=== PATIENT | female | born 1955 | race African-American/Black ===

== ENCOUNTER 2016-12-12 22:13 | Inpatient (IN) | payer MEDICAID, OTHER ==
[~2016-12-12] VITALS: Ht 165.1 cm; Wt 107.5 kg
[2016-12-12] MEDS ORDERED: MAGNESIUM/ALUMINUM HYDROXIDE/SIMETHICONE 30ML UDC PO STA (22:35)
[2016-12-12] MEDS ORDERED: SODIUM CHLORIDE 0.9% 1,000 ML IV ONE (22:35)
[2016-12-12] MEDS ORDERED: ONDANSETRON HCL 4MG/2ML VIAL IV STA (22:35)
[2016-12-12 23:00] LABS: CLARITY URINE TURBID (CLEAR); COLOR URINE DARK YELLOW (YELLOW); GLUCOSE URINE NEGATIVE (NEGATIVE); KETONES URINE 2+ (NEGATIVE); LEUKOCYTE ESTERASE URINE TRACE (NEGATIVE); NITRITE URINE POSITIVE (NEGATIVE); OCCULT BLOOD URINE NEGATIVE (NEGATIVE); PH URINE 7.5 (4.5-8.0); PROTEIN URINE 1+ (NEGATIVE); SPECIFIC GRAVITY URINE 1.028 (1.005-1.030)
[2016-12-12] MEDS ORDERED: KETOROLAC 30MG/ML VIAL IV ONE (23:30)
[2016-12-12 23:47] LABS: CHLORIDE 107 mEq/L (98-107)
[2016-12-12 23:48] LABS: BASOPHILS % 0.5 % (0.0-2.0); EOSINOPHILS % 0.1 % (0.0-5.0); HEMATOCRIT. 41.4 % (36.0-48.0); HEMOGLOBIN. 14.2 g/dL (12.0-16.0); INR 1.1; LYMPHOCYTES % 14.3 % (20.0-50.0); MEAN CORPUSCULAR HEMOGLOBIN 31.4 pg (28.0-32.0); MEAN CORPUSCULAR VOLUME 91.7 fL (81.0-99.0); MEAN PLATELET VOLUME 8.4 fl (7.4-10.4); NEUTROPHILS % 80.1 % (40.0-76.0); PLATELET 274 x1000/uL (130-400); RED BLOOD CELL COUNT 4.52 mill/uL (4.2-5.4); RED CELL DISTRIBUTION WIDTH 13.1 % (11.6-14.6)
[2016-12-12 23:57] LABS: CARBON DIOXIDE 22 mEq/L (21-32)
[2016-12-13] MEDS ORDERED: CEFTRIAXONE 1 G PREMIX 50 ML IV ONE (00:45)
[2016-12-13] MEDS ORDERED: MORPHINE SULFATE 4 MG/ML CPJ (NOT FOR IM USE) IV ONE (02:15)
[2016-12-13] MEDS ORDERED: ACETAMINOPHEN 325MG TABLET PO PRN ×2 (03:00→09:00)
[2016-12-13] MEDS ORDERED: IBUPROFEN 600MG TABLET PO PRN (03:00)
[2016-12-13] MEDS ORDERED: SODIUM CHLORIDE 0.9% 1,000 ML IV SCH (03:00)
[2016-12-13 08:40] VITALS: BP 122/66
[2016-12-13 08:58] VITALS: BP 122/66
[2016-12-13] MEDS ORDERED: CLONIDINE 0.1MG TABLET PO PRN (09:00)
[2016-12-13] MEDS ORDERED: IPRATROPIUM/ALBUTEROL 0.5-3(2.5)MG/3ML NEB INH PRN (09:00)
[2016-12-13] MEDS ORDERED: HYDROCODONE/ACETAMINOPHEN 5/325MG TABLET PO PRN (09:00)
[2016-12-13] MEDS ORDERED: DIPHENHYDRAMINE 50MG/ML VIAL IV PRN (09:00)
[2016-12-13] MEDS ORDERED: MAGNESIUM/ALUMINUM HYDROXIDE/SIMETHICONE 30ML UDC PO PRN (09:00)
[2016-12-13] MEDS ORDERED: ONDANSETRON HCL 4MG/2ML VIAL IV PRN (09:00)
[2016-12-13] MEDS ORDERED: NAPR500T PO (09:15)
[2016-12-13] MEDS: ENOXAPARIN 30MG/0.3ML SYR SUBCUT SCH ×2 (09:15→21:51)
[2016-12-13] MEDS: MORPHINE SULFATE 4 MG/ML CPJ (NOT FOR IM USE) IV PRN ×2 (09:45→21:44)
[2016-12-13 12:00] VITALS: BP 103/54
[2016-12-13] MEDS: SODIUM CHLORIDE 0.9% 1,000 ML IV SCH ×2 (12:21→21:52)
[2016-12-13] MEDS ORDERED: POTASSIUM CHLORIDE 20MEQ TABLET SR PO NR (14:00)
[2016-12-13 16:00] VITALS: BP 97/54
[2016-12-13 17:40] LABS: CREATINE KINASE 71 IU/L (26-192); TROPONIN I < 0.02 ng/mL (0.00-0.04)
[2016-12-13 17:42] LABS: CREATINE KINASE MB FRACTION 0.6 ng/mL (0.5-3.6)
[2016-12-14 00:36] LABS: CREATINE KINASE 81 IU/L (26-192); CREATINE KINASE MB FRACTION 0.6 ng/mL (0.5-3.6); TROPONIN I < 0.02 ng/mL (0.00-0.04)
[2016-12-14 06:52] LABS: BASOPHILS % 0.3 % (0.0-2.0); EOSINOPHILS % 0.8 % (0.0-5.0); HEMATOCRIT. 40.5 % (36.0-48.0); HEMOGLOBIN. 13.4 g/dL (12.0-16.0); LYMPHOCYTES % 30.1 % (20.0-50.0); MEAN CORPUSCULAR HEMOGLOBIN 31.8 pg (28.0-32.0); MEAN CORPUSCULAR VOLUME 96.5 fL (81.0-99.0); MEAN PLATELET VOLUME 8.8 fl (7.4-10.4); MONOCYTES % 5.8 % (2.0-8.0); PLATELET 173 x1000/uL (130-400); RED CELL DISTRIBUTION WIDTH 13.5 % (11.6-14.6)
[2016-12-14 08:00] VITALS: BP 125/71
[2016-12-14 08:09] LABS: CARBON DIOXIDE 27 mEq/L (21-32); CHLORIDE 109 mEq/L (98-107); T4 FREE 1.27 ng/dL (0.76-1.46)
[2016-12-14] MEDS: ENOXAPARIN 30MG/0.3ML SYR SUBCUT SCH ×2 (09:51→20:26)
[2016-12-14 12:00] VITALS: BP 125/73
[2016-12-14] MEDS: MORPHINE SULFATE 4 MG/ML CPJ (NOT FOR IM USE) IV PRN ×2 (13:46→20:26)
[2016-12-14 15:04] LABS: HEPATITIS B SURFACE ANTIGEN NEGATIVE
[2016-12-14 15:32] LABS: HEPATITIS B CORE AB IGM NEGATIVE
[2016-12-14 16:00] VITALS: BP 120/74
[2016-12-14 20:00] VITALS: BP 122/79
[2016-12-14] MEDS ORDERED: LEVOFLOXACIN 750MG PREMIX 150 ML IV SCH (20:00)
[2016-12-14] MEDS: METRONIDAZOLE 500 MG PREMIX 100 ML IV SCH (20:25)
[2016-12-14] MEDS: LEVOFLOXACIN 500MG PREMIX 100 ML IV SCH (22:09)
[2016-12-14] MEDS: DEXT 5%/0.45% NACL KCL 20MEQ/L 1,000 ML IV SCH (23:56)
[2016-12-15] VITALS: BP 127/76
[2016-12-15 04:00] VITALS: BP 115/68
[2016-12-15] MEDS: METRONIDAZOLE 500 MG PREMIX 100 ML IV SCH ×3 (04:07→22:30)
[2016-12-15] MEDS: MORPHINE SULFATE 4 MG/ML CPJ (NOT FOR IM USE) IV PRN (04:09)
[2016-12-15 11:31] LABS: BASOPHILS % 0.5 % (0.0-2.0); EOSINOPHILS % 0.8 % (0.0-5.0); HEMATOCRIT. 38.2 % (36.0-48.0); HEMOGLOBIN. 12.9 g/dL (12.0-16.0); LYMPHOCYTES % 34.8 % (20.0-50.0); MEAN CORPUSCULAR HEMOGLOBIN 31.5 pg (28.0-32.0); MEAN CORPUSCULAR VOLUME 92.9 fL (81.0-99.0); MONOCYTES % 7.4 % (2.0-8.0); NEUTROPHILS % 56.5 % (40.0-76.0); PLATELET 212 x1000/uL (130-400); RED BLOOD CELL COUNT 4.11 mill/uL (4.2-5.4); RED CELL DISTRIBUTION WIDTH 12.9 % (11.6-14.6)
[2016-12-15 11:52] LABS: CHLORIDE 109 mEq/L (98-107)
[2016-12-15 12:00] VITALS: BP 100/60
[2016-12-15 12:00] LABS: CARBON DIOXIDE 26 mEq/L (21-32)
[2016-12-15] MEDS: DEXT 5%/0.45% NACL KCL 20MEQ/L 1,000 ML IV SCH ×2 (12:07→22:26)
[2016-12-15 15:33] LABS: HEPATITIS A AB IGM NEGATIVE (NEGATIVE)
[2016-12-15 16:00] VITALS: BP 124/77
[2016-12-15] MEDS ORDERED: SKIN ADHESIVE 0.7 GM EA TOP ONE (17:05)
[2016-12-15] MEDS ORDERED: BUPIVACAINE HCL/PF 0.5% (5MG/ML) 10ML ONE (17:06)
[2016-12-15] MEDS ORDERED: LIDOCAINE HCL 1% 20ML VIAL (Pyxis) INJ ONE ×2 (17:06→18:03)
[2016-12-15] MEDS ORDERED: PROPOFOL 200MG/20ML VIAL IV ONE (18:03)
[2016-12-15] MEDS ORDERED: FENTANYL CITRATE/PF 50MCG/ML 2ML VIAL ONE ×2 (18:03→20:39)
[2016-12-15] MEDS ORDERED: MIDAZOLAM HCL 2 MG/2 ML VIAL ONE (18:03)
[2016-12-15] MEDS ORDERED: SUCCINYLCHOLINE CHLORIDE 200MG/10ML VIAL IV ONE (18:04)
[2016-12-15] MEDS ORDERED: ROCURONIUM BROMIDE 10MG/ML VIAL 5ML IV ONE (18:04)
[2016-12-15] MEDS ORDERED: SODIUM CHLORIDE 0.9% 10ML VIAL ONE ×2 (18:09→18:26)
[2016-12-15] MEDS ORDERED: EPHEDRINE SULFATE 50MG/ML VIAL ONE (18:09)
[2016-12-15] MEDS ORDERED: CEFAZOLIN SODIUM 1000MG/VIAL ONE ×2 (18:13→19:18)
[2016-12-15] MEDS ORDERED: DEXAMETHASONE 4MG/ML 1ML VIAL ONE (18:15)
[2016-12-15] MEDS ORDERED: ONDANSETRON HCL 4MG/2ML VIAL ONE (18:15)
[2016-12-15] MEDS ORDERED: PHENYLEPHRINE HCL 10 MG/ML 1ML (IV VIAL) IV ONE (18:24)
[2016-12-15] MEDS ORDERED: GLYCOPYRROLATE 0.2 MG/ML 2ML VIAL ONE (19:21)
[2016-12-15] MEDS ORDERED: NEOSTIGMINE METHYLSULFATE 1MG/ML 10 ML VIAL ONE (20:05)
[2016-12-15] MEDS ORDERED: MORPHINE SULFATE 4 MG/ML CPJ (NOT FOR IM USE) IV PRN (21:45)
[2016-12-15] MEDS: LEVOFLOXACIN 500MG PREMIX 100 ML IV SCH (23:37)
[2016-12-16] VITALS (7 sets, daily range): BP systolic 97–119; BP diastolic 42–73
[2016-12-16] MEDS: DEXT 5%/0.45% NACL KCL 20MEQ/L 1,000 ML IV SCH (04:42)
[2016-12-16] MEDS: HYDROMORPHONE HCL/PF 2MG/ML CPJ IV PRN ×3 (04:55→17:03)
[2016-12-16] MEDS: METRONIDAZOLE 500 MG PREMIX 100 ML IV SCH ×2 (04:55→13:29)
[2016-12-16 07:29] LABS: BASOPHILS % 0.1 % (0.0-2.0); HEMATOCRIT. 39.1 % (36.0-48.0); HEMOGLOBIN. 13.3 g/dL (12.0-16.0); LYMPHOCYTES % 9.1 % (20.0-50.0); MEAN CORPUSCULAR HEMOGLOBIN 31.8 pg (28.0-32.0); MEAN CORPUSCULAR VOLUME 93.8 fL (81.0-99.0); MEAN PLATELET VOLUME 9.1 fl (7.4-10.4); NEUTROPHILS % 88.8 % (40.0-76.0); PLATELET 245 x1000/uL (130-400); RED BLOOD CELL COUNT 4.17 mill/uL (4.2-5.4); RED CELL DISTRIBUTION WIDTH 13.1 % (11.6-14.6)
[2016-12-16] MEDS: ENOXAPARIN 30MG/0.3ML SYR SUBCUT SCH (10:29)
== END 2016-12-16 20:49 | disposition home or self-care (01) | DRG 263 ==
LOC: ER 22:13 → 6EST 12-13 03:29 → ENRESERV 12-13 07:36
PROVIDERS: ADMIT Internal Medicine; ATTEND Internal Medicine
PROC: 0FT44ZZ Resection of Gallbladder, Percutaneous Endoscopic Approach (ICD-10-PCS; principal; 2016-12-15 18:00)
DX: K80.00 Calculus of gallbladder with acute cholecystitis without obstruction (principal); K83.8 Other specified diseases of biliary tract; N39.0 Urinary tract infection, site not specified; F41.9 Anxiety disorder, unspecified; R74.0 Nonspecific elevation of levels of transaminase and lactic acid dehydrogenase [LDH]; R73.9 Hyperglycemia, unspecified; E66.9 Obesity, unspecified; K21.9 Gastro-esophageal reflux disease without esophagitis; F17.210 Nicotine dependence, cigarettes, uncomplicated; Z90.710 Acquired absence of both cervix and uterus; Z68.39 Body mass index [BMI] 39.0-39.9, adult
CPT/HCPCS: 36415; 71010; 74176; 74181; 76700; 80053; 81001; 82550; 82553; 83690; 84439; 84443; 84484; 85025; 85610; 86705; 86709; 86803; 87340; 88304; 93005; 93970; 96361; 96365; 96375; 99285; A4216; A6261; J0171; J0330; J0690; J0696; J1100; J1170; J1650; J1885; J1956; J2250; J2270; J2370; J2405; J2704; J2710; J3010; J3490; J7030

== ENCOUNTER 2023-11-07 17:03 | Emergency (ER) | payer MEDICARE, MEDICAID ==
[~2023-11-07] VITALS: Ht 165.1 cm; Wt 90.0 kg
[~2023-11-07 17:03] MED LIST: NAPR-1176 PO
[2023-11-07 17:06] VITALS: O2SAT 98
[2023-11-07] MEDS: ACETAMINOPHEN 325MG TABLET PO ONE (19:30)
[2023-11-07] MEDS: LIDOCAINE 5% PATCH TOP SCH (20:05)
[2023-11-07] MEDS ORDERED: LIDO700A30 TP (21:34)
[2023-11-07] MEDS ORDERED: NAPR500T7 MT (21:34)
[2023-11-07] MEDS ORDERED: TOPUD PO (21:34)
[2023-11-07 22:12] VITALS: BP 131/88; PULSE 90; RESP 20; TEMP 98
== END 2023-11-07 22:15 | disposition home or self-care (01) ==
LOC: ER 17:03
DX: S09.90XA Unspecified injury of head, initial encounter (principal); M54.2 Cervicalgia; Z79.899 Other long term (current) drug therapy; W18.39XA Other fall on same level, initial encounter; Y93.89 Activity, other specified; Y92.89 Other specified places as the place of occurrence of the external cause; Y99.8 Other external cause status
CPT/HCPCS: 99284

== ENCOUNTER 2023-11-30 14:09 | Inpatient (IN) | payer MEDICARE, MEDICAID ==
[~2023-11-30] VITALS: Ht 162.6 cm; Wt 89.4 kg
[~2023-11-30 14:09] MED LIST changes: +LIDO700A30 TP; +NAPR500T7 MT; +TOPUD PO
[2023-11-30 16:17] LABS: BASOPHILS % 0.5 % (0.0-2.0); EOSINOPHILS % 0.5 % (0.0-5.0); HEMATOCRIT. 44.7 % (36.0-48.0); HEMOGLOBIN. 14.6 g/dL (12.0-16.0); LYMPHOCYTES % 29.9 % (20.0-50.0); MEAN CORPUSCULAR HEMOGLOBIN 30.8 pg (28.0-32.0); MEAN CORPUSCULAR HGB CONC 32.7 g/dL (31.0-37.0); MEAN CORPUSCULAR VOLUME 94.3 fL (81.0-99.0); MEAN PLATELET VOLUME 8.2 fl (7.4-10.4); MONOCYTES % 5.3 % (2.0-8.0); NEUTROPHILS % 63.8 % (40.0-76.0); PLATELET 328 x1000/uL (130-400); RED BLOOD CELL COUNT 4.74 mill/uL (4.2-5.4); RED CELL DISTRIBUTION WIDTH 13.8 % (11.6-14.6); WHITE BLOOD COUNT 10.5 x1000/uL (4.5-11.0)
[2023-11-30 16:19] LABS: CARBON DIOXIDE 26 mEq/L (21-32); CHLORIDE 110 mEq/L (98-107); POTASSIUM 3.4 mEq/L (3.5-5.1); SODIUM 142 mEq/L (136-145)
[2023-11-30 16:20] LABS: CALCIUM 9.6 mg/dL (8.7-10.4)
[2023-11-30 16:24] LABS: CREATININE 0.9 mg/dL (0.6-1.0)
[2023-11-30 16:25] LABS: GLUCOSE 105 mg/dL (70-105); UREA NITROGEN BLOOD 7 mg/dL (9-23)
[2023-11-30 18:03] LABS: CLARITY URINE TURBID (CLEAR); COLOR URINE DARK YELLOW (YELLOW); GLUCOSE URINE NEGATIVE (NEGATIVE); KETONES URINE TRACE (NEGATIVE); LEUKOCYTE ESTERASE URINE 1+ (NEGATIVE); NITRITE URINE POSITIVE (NEGATIVE); OCCULT BLOOD URINE NEGATIVE (NEGATIVE); PH URINE 5.5 (4.5-8.0); PROTEIN URINE 1+ (NEGATIVE); SPECIFIC GRAVITY URINE 1.027 (1.005-1.030)
[2023-11-30 18:26] LABS: BACTERIA URINE 4+; RBC URINE 0-2 /hpf (0-2); SQUAMOUS EPITHELIAL CELL URINE 2+ /lpf (RARE/1+)
[2023-11-30] MEDS ORDERED: LEVOFLOXACIN 500MG PREMIX 100 ML IV NR (18:40)
[2023-12-01 01:38] VITALS: BP 141/81; PULSE 80; RESP 18; TEMP 36.8072
[2023-12-01] MEDS ORDERED: MENT4ADH6 TP (03:06)
[2023-12-01] MEDS ORDERED: IBUP-2030 MT (03:06)
[2023-12-01 04:00] VITALS: BP 107/59; PULSE 76; RESP 18; TEMP 36.3918; O2SAT 96
[2023-12-01] MEDS ORDERED: IOHEXOL-300 100 ML BOTTLE ONE (07:08)
[2023-12-01 08:00] VITALS: BP 103/58; PULSE 78; RESP 18; TEMP 36.55848; O2SAT 96
[2023-12-01] MEDS ORDERED: ONDANSETRON HCL 4MG/2ML INJ IV PRN (10:30)
[2023-12-01] MEDS ORDERED: ACETAMINOPHEN 325MG TABLET PO PRN (10:30)
[2023-12-01] MEDS ORDERED: CLONIDINE 0.1MG TABLET PO PRN (10:30)
[2023-12-01] MEDS ORDERED: GUAIFENESIN 200MG/10ML SUGAR FREE UDC PO PRN (10:30)
[2023-12-01] MEDS ORDERED: IPRATROPIUM/ALBUTEROL 0.5-3(2.5)MG/3ML NEB HHN PRN (10:30)
[2023-12-01] MEDS: FAMOTIDINE 20MG/2ML VIAL IV SCH (11:00)
[2023-12-01 12:00] VITALS: BP 100/59; PULSE 79; RESP 19; TEMP 36.61404; O2SAT 97
[2023-12-01 15:04] LABS: *AMPHETAMINES SCREEN URINE NEGATIVE (NEGATIVE); *BARBITURATES SCREEN URINE NEGATIVE (NEGATIVE); *BENZODIAZEPINES SCREEN URINE NEGATIVE (NEGATIVE); *COCAINE SCREEN URINE NEGATIVE (NEGATIVE)
[2023-12-01 15:05] LABS: CANNABINOID URINE SCREEN NEGATIVE (NEGATIVE); ECSTASY MDMA SCREEN URINE NEGATIVE (NEGATIVE); METHADONE URINE SCREEN NEGATIVE (NEGATIVE); OPIATES URINE SCREEN NEGATIVE (NEGATIVE); PHENCYCLIDINE URINE SCREEN NEGATIVE (NEGATIVE)
[2023-12-01 16:00] VITALS: BP 105/65; PULSE 74; RESP 18; TEMP 36.89184; O2SAT 96
[2023-12-01 20:00] VITALS: BP 127/76; PULSE 82; RESP 18; TEMP 36.55848; O2SAT 98
[2023-12-01] MEDS: DOCUSATE SODIUM 100MG CAPSULE PO PRN (21:58)
[2023-12-02] VITALS: BP 112/68; PULSE 72; RESP 18; TEMP 36.78072; O2SAT 99
[2023-12-02 01:59] LABS: CREATINE KINASE 108 IU/L (34-145)
[2023-12-02 04:00] VITALS: BP 118/77; PULSE 77; RESP 18; TEMP 36.55848; O2SAT 98
[2023-12-02 06:18] LABS: BASOPHILS % 0.2 % (0.0-2.0); EOSINOPHILS % 0.3 % (0.0-5.0); HEMATOCRIT. 38.9 % (36.0-48.0); HEMOGLOBIN. 12.6 g/dL (12.0-16.0); LYMPHOCYTES % 20.9 % (20.0-50.0); MEAN CORPUSCULAR HEMOGLOBIN 30.4 pg (28.0-32.0); MEAN CORPUSCULAR HGB CONC 32.3 g/dL (31.0-37.0); MEAN CORPUSCULAR VOLUME 94.1 fL (81.0-99.0); MEAN PLATELET VOLUME 8.4 fl (7.4-10.4); MONOCYTES % 4.8 % (2.0-8.0); NEUTROPHILS % 73.8 % (40.0-76.0); PLATELET 257 x1000/uL (130-400); RED BLOOD CELL COUNT 4.14 mill/uL (4.2-5.4); RED CELL DISTRIBUTION WIDTH 13.3 % (11.6-14.6); WHITE BLOOD COUNT 12.3 x1000/uL (4.5-11.0)
[2023-12-02 06:34] LABS: CHLORIDE 107 mEq/L (98-107); POTASSIUM 3.4 mEq/L (3.5-5.1); SODIUM 140 mEq/L (136-145)
[2023-12-02 06:35] LABS: CARBON DIOXIDE 27 mEq/L (21-32)
[2023-12-02 06:40] LABS: CREATININE 0.7 mg/dL (0.6-1.0); GLUCOSE 105 mg/dL (70-105); TRIGLYCERIDE 106 mg/dL (0-150); UREA NITROGEN BLOOD 10 mg/dL (9-23)
[2023-12-02 06:41] LABS: LDL CHOLESTEROL 105 mg/dL (5-100)
[2023-12-02 06:42] LABS: CHOLESTEROL 149 mg/dL (<200); HDL CHOLESTEROL 33 mg/dL (>65)
[2023-12-02 06:44] LABS: T4 FREE 0.89 ng/dL (0.89-1.76); THYROID STIMULATING HORMONE 4.05 uIU/mL (0.55-4.78)
[2023-12-02 08:00] VITALS: BP 97/53; PULSE 74; RESP 16; TEMP 36.61404; O2SAT 95
[2023-12-02 08:41] LABS: ERYTHROCYTE SEDIMENTATION RATE 21 mm/hr (0-30)
[2023-12-02 12:00] VITALS: BP 97/55; PULSE 91; RESP 19; TEMP 36.6696; O2SAT 98
[2023-12-02 14:59] VITALS: BP 97/55; PULSE 91; TEMP 98; O2SAT 98
[2023-12-02 16:00] VITALS: BP 115/70; PULSE 69; RESP 18; TEMP 36.61404; O2SAT 100
== END 2023-12-02 17:30 | disposition home or self-care (01) | DRG 463 ==
LOC: ER 14:09 → EDBEDREQ 22:19 → EDBEDREQTM 22:19 → 5WST 23:13 → 6WST 23:18
PROVIDERS: ADMIT Internal Medicine; ATTEND Internal Medicine
DX: N39.0 Urinary tract infection, site not specified (principal); E66.9 Obesity, unspecified; N28.1 Cyst of kidney, acquired; E87.6 Hypokalemia; F17.210 Nicotine dependence, cigarettes, uncomplicated; G62.9 Polyneuropathy, unspecified; Z79.899 Other long term (current) drug therapy; Z82.49 Family history of ischemic heart disease and other diseases of the circulatory system; Z68.33 Body mass index [BMI] 33.0-33.9, adult
CPT/HCPCS: 36415; 74178; 80048; 80061; 80305; 81003; 82040; 82550; 83735; 84439; 84443; 85025; 85651; 93005; 93970; 97166; 99285; J3490; Q9967

== ENCOUNTER 2024-11-02 16:55 | Inpatient (IN) | payer MEDICARE, MEDICAID ==
[~2024-11-02] VITALS: Ht 170.2 cm; Wt 84.9 kg
[~2024-11-02 16:55] MED LIST changes: +IBUP-2030 MT; +MENT4ADH6 TP; +NAPR-1486 MT; -NAPR500T7 MT
[2024-11-02 16:56] VITALS: O2SAT 99
[2024-11-02 18:11] LABS: BASOPHILS % 0.3 % (0.0-2.0); EOSINOPHILS % 0.2 % (0.0-5.0); HEMATOCRIT. 42.3 % (36.0-48.0); HEMOGLOBIN. 14.1 g/dL (12.0-16.0); LYMPHOCYTES % 17.1 % (20.0-50.0); MEAN PLATELET VOLUME 9.4 fl (7.4-10.4); MONOCYTES % 5.3 % (2.0-8.0); NEUTROPHILS % 77.1 % (40.0-76.0); PLATELET 216 x1000/uL (130-400); RED BLOOD CELL COUNT 4.46 mill/uL (4.2-5.4); RED CELL DISTRIBUTION WIDTH 13.5 % (11.6-14.6)
[2024-11-02 18:31] LABS: INR 1.1
[2024-11-02 18:38] LABS: CREATININE 0.9 mg/dL (0.6-1.0); ETHANOL BLOOD < 10 mg/dL (<10); TROPONIN I HIGH SENSITIVITY < 4 ng/L (3.0-34); UREA NITROGEN BLOOD 6 mg/dL (9-23)
[2024-11-02 18:40] LABS: ASPARTATE AMINOTRANSFERASE 18 IU/L (<34); BILIRUBIN DIRECT 0.4 mg/dL (<=3.0); BILIRUBIN TOTAL 1.1 mg/dL (0.1-1.0); PHOSPHORUS 1.9 mg/dL (2.5-4.9); PROTEIN TOTAL 6.8 g/dL (6.0-8.3)
[2024-11-02] MEDS: POTASSIUM CHLORIDE 20MEQ/PACKET PO NR (19:47)
[2024-11-02 20:58] LABS: CLARITY URINE TURBID (CLEAR); GLUCOSE URINE NEGATIVE (NEGATIVE); KETONES URINE 1+ (NEGATIVE); LEUKOCYTE ESTERASE URINE 1+ (NEGATIVE); NITRITE URINE POSITIVE (NEGATIVE); OCCULT BLOOD URINE NEGATIVE (NEGATIVE); PH URINE 5.5 (4.5-8.0); PROTEIN URINE 1+ (NEGATIVE); SPECIFIC GRAVITY URINE 1.020 (1.005-1.030); UROBILINOGEN URINE 1.0 E.U./dL (0.2-1.0)
[2024-11-02] MEDS: SODIUM CHLORIDE 0.9% 500 ML IV ONE (21:09)
[2024-11-02] MEDS: POTASSIUM PHOSPHATE 30 MMOL in DEXT 5% WATER 500 ML IV NR (21:10)
[2024-11-02 21:13] LABS: *AMPHETAMINES SCREEN URINE NEGATIVE (NEGATIVE); *BARBITURATES SCREEN URINE NEGATIVE (NEGATIVE); *BENZODIAZEPINES SCREEN URINE NEGATIVE (NEGATIVE); *COCAINE SCREEN URINE NEGATIVE (NEGATIVE); CANNABINOID URINE SCREEN NEGATIVE (NEGATIVE); ECSTASY MDMA SCREEN URINE NEGATIVE (NEGATIVE); METHADONE URINE SCREEN NEGATIVE (NEGATIVE); OPIATES URINE SCREEN NEGATIVE (NEGATIVE); PHENCYCLIDINE URINE SCREEN NEGATIVE (NEGATIVE)
[2024-11-02 21:16] LABS: COLOR URINE YELLOW (YELLOW)
[2024-11-02 21:19] LABS: RBC URINE NONE SEEN /hpf (0-2); SQUAMOUS EPITHELIAL CELL URINE 2+ /lpf (RARE/1+)
[2024-11-02 21:20] LABS: BACTERIA URINE 3+
[2024-11-02 21:22] LABS: MUCUS URINE 1+ /lpf (< = 2+)
[2024-11-02] MEDS: CEFTRIAXONE 2GM/50ML 50 ML IV SCH (22:18)
[2024-11-02] MEDS ORDERED: ACETAMINOPHEN 325MG TABLET PO PRN (22:45)
[2024-11-02] MEDS ORDERED: CLONIDINE 0.1MG TABLET PO PRN (22:45)
[2024-11-02] MEDS ORDERED: GUAIFENESIN 200MG/10ML SUGAR FREE UDC PO PRN (22:45)
[2024-11-02] MEDS ORDERED: DOCUSATE SODIUM 100MG CAPSULE PO PRN (22:45)
[2024-11-02] MEDS ORDERED: ONDANSETRON HCL 4MG/2ML INJ IV PRN (22:45)
[2024-11-02] MEDS ORDERED: IPRATROPIUM/ALBUTEROL 0.5-3(2.5)MG/3ML NEB HHN PRN (22:45)
[2024-11-02] MEDS ORDERED: DEXT 5%/0.45% NACL 1000ML 1,000 ML IV SCH (23:15)
[2024-11-03] MEDS: PIPERACILLIN/TAZO 3.375G/50ML 50 ML IV SCH (01:40)
[2024-11-03] MEDS: SODIUM CHLORIDE 0.45% 1,000 ML IV SCH (09:02)
[2024-11-03 10:23] LABS: BASOPHILS % 0.3 % (0.0-2.0); EOSINOPHILS % 0.3 % (0.0-5.0); HEMATOCRIT. 37.3 % (36.0-48.0); HEMOGLOBIN. 12.7 g/dL (12.0-16.0); LYMPHOCYTES % 22.4 % (20.0-50.0); MEAN PLATELET VOLUME 9.3 fl (7.4-10.4); MONOCYTES % 6.0 % (2.0-8.0); NEUTROPHILS % 71.0 % (40.0-76.0); PLATELET 197 x1000/uL (130-400); RED BLOOD CELL COUNT 4.05 mill/uL (4.2-5.4); RED CELL DISTRIBUTION WIDTH 13.7 % (11.6-14.6)
[2024-11-03 10:39] LABS: CREATININE 0.7 mg/dL (0.6-1.0)
[2024-11-03 10:40] LABS: LDL CHOLESTEROL 91 mg/dL (5-100); TRIGLYCERIDE 100 mg/dL (0-150); UREA NITROGEN BLOOD 6 mg/dL (9-23)
[2024-11-03 10:42] LABS: PHOSPHORUS 2.9 mg/dL (2.5-4.9)
[2024-11-03 10:45] LABS: T4 FREE 1.12 ng/dL (0.89-1.76)
[2024-11-03 12:00] VITALS: BP 108/47; PULSE 82; RESP 18; TEMP 36.3; O2SAT 94
[2024-11-03 16:00] VITALS: BP 89/44; PULSE 62; RESP 18; TEMP 36.5; O2SAT 96
[2024-11-03 18:09] VITALS: BP 105/62; PULSE 65; RESP 18; TEMP 36.2512
[2024-11-03 20:00] VITALS: BP 120/49; PULSE 75; RESP 17; TEMP 36.4; O2SAT 98
[2024-11-03] MEDS: POTASSIUM CHLORIDE 20MEQ TABLET SR PO SCH (21:32)
[2024-11-04] VITALS (8 sets, daily range): BP systolic 89–155; BP diastolic 41–83; PULSE 62–74; RESP 17–20; TEMP 36.1–37; O2SAT 94–100
[2024-11-04 06:49] LABS: PLATELET 183 x1000/uL (130-400); RED BLOOD CELL COUNT 3.77 mill/uL (4.2-5.4); RED CELL DISTRIBUTION WIDTH 13.5 % (11.6-14.6)
[2024-11-04 07:15] LABS: CREATININE 0.7 mg/dL (0.6-1.0)
[2024-11-04 07:16] LABS: UREA NITROGEN BLOOD 5 mg/dL (9-23)
[2024-11-04 07:18] LABS: PHOSPHORUS 3.0 mg/dL (2.5-4.9)
[2024-11-04] MEDS ORDERED: POTASSIUM CHLORIDE 20 MEQ in DEXT 5% WATER 90 ML IV ONE (07:45)
[2024-11-04] MEDS: POTASSIUM CHLORIDE 20MEQ TABLET SR PO NR ×2 (10:54→16:44)
[2024-11-04] MEDS: SODIUM CHLORIDE 0.45% 500 ML IV NR (10:54)
[2024-11-04] MEDS: KCL 20MEQ/100ML PREMIX 100 ML IV ONE (13:37)
[2024-11-04 17:49] LABS: CREATININE 0.8 mg/dL (0.6-1.0); UREA NITROGEN BLOOD 6 mg/dL (9-23)
[2024-11-05] VITALS: BP 102/52; PULSE 70; RESP 16; TEMP 37; O2SAT 97
[2024-11-05 04:00] VITALS: BP 117/49; PULSE 62; RESP 16; TEMP 36.5; O2SAT 95
[2024-11-05 07:51] LABS: TROPONIN I HIGH SENSITIVITY < 4 ng/L (3.0-34)
[2024-11-05 07:52] LABS: BASOPHILS % 0.1 % (0.0-2.0); EOSINOPHILS % 0.9 % (0.0-5.0); HEMATOCRIT. 36.2 % (36.0-48.0); HEMOGLOBIN. 12.2 g/dL (12.0-16.0); LYMPHOCYTES % 29.7 % (20.0-50.0); MEAN PLATELET VOLUME 9.9 fl (7.4-10.4); MONOCYTES % 6.1 % (2.0-8.0); NEUTROPHILS % 63.2 % (40.0-76.0); PLATELET 192 x1000/uL (130-400); RED BLOOD CELL COUNT 3.87 mill/uL (4.2-5.4); RED CELL DISTRIBUTION WIDTH 13.6 % (11.6-14.6)
[2024-11-05 08:00] VITALS: BP 105/56; PULSE 69; RESP 18; TEMP 36.4; O2SAT 97
[2024-11-05 09:06] LABS: CREATININE 0.7 mg/dL (0.6-1.0); UREA NITROGEN BLOOD 6 mg/dL (9-23)
[2024-11-05] MEDS ORDERED: POTA-189 MT (09:24)
[2024-11-05] MEDS ORDERED: SULF1TAB47 MT (09:24)
[2024-11-05 10:27] VITALS: BP 105/56; PULSE 69; RESP 18; TEMP 97.5
== END 2024-11-05 12:45 | disposition home health service (06) | DRG 312 ==
LOC: ER 16:55 → 5WST 21:44 → EDBEDREQTM 21:45 → EDBEDREQ 21:45 → ENRESERV 22:46
PROVIDERS: ADMIT Hospitalist; ATTEND Hospitalist
DX: I95.1 Orthostatic hypotension (principal); N39.0 Urinary tract infection, site not specified; E87.0 Hyperosmolality and hypernatremia; E86.0 Dehydration; E87.6 Hypokalemia; R73.9 Hyperglycemia, unspecified; E87.8 Other disorders of electrolyte and fluid balance, not elsewhere classified; E83.39 Other disorders of phosphorus metabolism; Z87.440 Personal history of urinary (tract) infections; Z87.81 Personal history of (healed) traumatic fracture; Z87.891 Personal history of nicotine dependence
CPT/HCPCS: 36415; 71045; 73560; 80048; 80061; 80076; 80305; 80320; 81003; 82550; 83735; 83880; 84100; 84439; 84443; 84484; 85025; 85027; 85379; 93005; 93306; 97161; 97166; 97535; 99285; J0696; J2543; J3480; J3490; J7060; G0480

== ENCOUNTER → 2025-03-02 | Outpatient (CLI) | payer MEDICARE, MEDICAID ==
[~2025-03-02] MED LIST changes: +CYCL10TA21 MT; -NAPR-1176 PO; +POTA-189 MT; +SULF1TAB47 MT
== END | disposition home or self-care (01) ==
LOC: MRI 12:38
PROVIDERS: ATTEND Specialist
DX: S83.241A Other tear of medial meniscus, current injury, right knee, initial encounter (principal); S83.281A Other tear of lateral meniscus, current injury, right knee, initial encounter; M17.11 Unilateral primary osteoarthritis, right knee; M25.761 Osteophyte, right knee; M25.461 Effusion, right knee; M22.41 Chondromalacia patellae, right knee; M51.16 Intervertebral disc disorders with radiculopathy, lumbar region; M47.26 Other spondylosis with radiculopathy, lumbar region; M43.17 Spondylolisthesis, lumbosacral region; M48.07 Spinal stenosis, lumbosacral region; M47.814 Spondylosis without myelopathy or radiculopathy, thoracic region; M53.86 Other specified dorsopathies, lumbar region; M76.891 Other specified enthesopathies of right lower limb, excluding foot; M25.78 Osteophyte, vertebrae; M53.3 Sacrococcygeal disorders, not elsewhere classified; M47.818 Spondylosis without myelopathy or radiculopathy, sacral and sacrococcygeal region; X58.XXXA Exposure to other specified factors, initial encounter; Y93.89 Activity, other specified; Y92.89 Other specified places as the place of occurrence of the external cause; Y99.8 Other external cause status
CPT/HCPCS: 72148; 73721